=== PATIENT | female | born 1985 ===

== ENCOUNTER 2016-12-11 01:14 | Inpatient (IN) | payer BC, OTHER ==
[~2016-12-11] VITALS: Ht 147.3 cm; Wt 70.0 kg
[2016-12-11] VITALS (16 sets, daily range): BP systolic 100–123; BP diastolic 58–98; PULSE 88–104; TEMP 97.4–98.5
[~2016-12-11 01:14] MED LIST: PRENATAL1 TA1 PO
[2016-12-11] MEDS ORDERED: IRON325 M2 PO (02:07)
[2016-12-11 09:48] LABS: BASO % 0.3 % (0.0-2.0); EOS # 0.1 (0.0-0.7); EOS % 0.8 % (0-4.0); GRAN # 6.6 (1.4-6.5); GRAN % 72.4 % (42.2-75.2); HEMOGLOBIN 12.5 g/dl (12.5-16.0); LYMPH # 1.8 (1.2-3.4); LYMPH % 19.8 % (20.0-51.0); MEAN CELL VOLUME 92 fl (80.0-100.0); MEAN CORPUSCULAR HEMOGLOBIN 33 pg (27.0-31.0); MEAN CORPUSCULAR HGB CONC 36 g/dl (33.0-37.0); MONO # 0.5 (0.1-0.6); MONO % 5.9 % (1.7-9.3); PLATELET COUNT 199 K/mm3 (130-400); RED BLOOD COUNT 3.78 M/mm3 (4.10-5.30); REDCELL DISTRIBUTION WIDTH-CV 12.7 % (11.5-14.5); WHITE BLOOD COUNT 9.1 K/mm3 (4.8-10.8)
[2016-12-11 09:52] LABS: HEMATOCRIT 34.6 % (37.0-47.0)
[2016-12-12] VITALS: BP 96/52; PULSE 74; TEMP 98.3
[2016-12-12 06:58] LABS: BASO % 0.2 % (0.0-2.0); EOS % 0.2 % (0-4.0); GRAN # 14.4 (1.4-6.5); GRAN % 80.2 % (42.2-75.2); LYMPH # 2.4 (1.2-3.4); LYMPH % 13.5 % (20.0-51.0); MEAN CELL VOLUME 95 fl (80.0-100.0); MEAN CORPUSCULAR HGB CONC 34 g/dl (33.0-37.0); MONO # 0.9 (0.1-0.6); MONO % 5.2 % (1.7-9.3); PLATELET COUNT 177 K/mm3 (130-400); RED BLOOD COUNT 3.15 M/mm3 (4.10-5.30); REDCELL DISTRIBUTION WIDTH-CV 12.8 % (11.5-14.5)
[2016-12-12 07:01] LABS: HEMATOCRIT 29.8 % (37.0-47.0); HEMOGLOBIN 10.2 g/dl (12.5-16.0); MEAN CORPUSCULAR HEMOGLOBIN 32 pg (27.0-31.0)
[2016-12-12 08:45] VITALS: BP 117/70; PULSE 78; TEMP 97.4
[2016-12-12 16:45] VITALS: BP 102/63; PULSE 88; TEMP 97.8
[2016-12-12 20:00] VITALS: BP 128/76; PULSE 76; TEMP 98.2
[2016-12-13 07:00] VITALS: BP 110/65; PULSE 81; TEMP 97.6
[2016-12-13] MEDS ORDERED: IBU800 M1 PO (14:06)
[2016-12-13] MEDS ORDERED: PERCOCET 325 MG1 TA2 PO (14:07)
== END 2016-12-13 14:35 | disposition home or self-care (01) | DRG 765 ==
LOC: LDR 01:14 → OB 01:14
PROVIDERS: Student in an Organized Health Care Education/Training Program
PROC: 10D00Z1 Extraction of Products of Conception, Low, Open Approach (ICD-10-PCS; principal; 2016-12-11)
PROC: 0UN90ZZ Release Uterus, Open Approach (ICD-10-PCS; 2016-12-11)
DX: O34.211 Maternal care for low transverse scar from previous cesarean delivery (principal); O36.5930 Maternal care for other known or suspected poor fetal growth, third trimester, not applicable or unspecified; N85.8 Other specified noninflammatory disorders of uterus; O26.843 Uterine size-date discrepancy, third trimester; K66.0 Peritoneal adhesions (postprocedural) (postinfection); Z3A.39 39 weeks gestation of pregnancy; Z37.0 Single live birth
CPT/HCPCS: J0690; J1100; J1885; J2270; J2370; J2405; J2550; J2590; J7120

== ENCOUNTER 2016-12-11 01:14 | Outpatient (CLI) | payer BC ==
[~2016-12-11] VITALS: Ht 147.3 cm; Wt 70.0 kg
[2016-12-11 01:58] VITALS: BP 124/75; PULSE 89; TEMP 98
[2016-12-11] MEDS ORDERED: IRON325 M2 PO (02:07)
== END 2016-12-11 02:20 | disposition home or self-care (01) ==
LOC: LDRO 01:14
DX: O36.8130 Decreased fetal movements, third trimester, not applicable or unspecified (principal); Z3A.39 39 weeks gestation of pregnancy

== ENCOUNTER → 2016-12-26 | Outpatient (CLI) | payer BC ==
[~2016-12-26] MED LIST changes: +IBU800 M1 PO; +IRON325 M2 PO; +PERCOCET 325 MG1 TA2 PO
== END ==
LOC: OLC 12:01
DX: Z39.1 Encounter for care and examination of lactating mother (principal); Z71.89 Other specified counseling